=== PATIENT | female | born 1940 | race American Indian/Alaskan Native ===

== ENCOUNTER 2018-03-08 23:13 | Emergency (ER) | payer MEDICARE ==
[2018-03-09 00:48] LABS: Basophils # (Auto) 0.1 K/mm3 (0.0-0.1); Basophils % (Auto) 1.2 % (0.0-1.8); Eosinophils # (Auto) 0.4 K/mm3 (0.0-0.4); Eosinophils % (Auto) 5.9 % (0.0-4.3); Hematocrit 32.5 % (30.3-42.9); Hemoglobin 10.2 gm/dl (10.1-14.3); Lymphocytes # (Auto) 1.7 K/mm3 (1.2-5.4); Lymphocytes % (Auto) 28.9 % (13.4-35.0); Mean Corpuscular HGB Conc 31 % (30-34); Mean Corpuscular Hemoglobin 27 pg (28-32); Mean Corpuscular Volume 87 fl (79-97); Monocytes # (Auto) 0.6 K/mm3 (0.0-0.8); Monocytes % (Auto) 10.4 % (0.0-7.3); Platelet Count 218 K/mm3 (140-440); Red Blood Count 3.74 M/mm3 (3.65-5.03); Red Cell Distribution Width 14.5 % (13.2-15.2)
[2018-03-09 01:06] LABS: Albumin 4.3 g/dL (3.9-5); Calcium 9.1 mg/dL (8.4-10.2)
--- NOTE | 2018-03-09 02:41 | Emergency Department Report ---
HPI - General Chief Complaint: Fall Time Seen by Provider: 03/09/18 02:11 - HPI HPI: 77-year-old -Portuguese female presents to the emergency department from home after she has had 3 different falls and has some dizziness. Patient has a history of narcolepsy and recently was started on a new medication called Armadafinil that she started taking 2 days ago. However last night patient had 3 different instances in which she felt balanced and fell including one time in the bathroom. She fell backwards, hit her head, but denies any loss of consciousness. She also has some pain to the right hand and the right hip from this fall. The patient's speech sounds slightly slurred and when I ask her family, who is bedside, if this is her usual speech they say that this is new since last night as well. The patient used to be on Dexedrine for the narcolepsy. She denies any fever, numbness or paresthesias, chest pain or shortness of breath. She has not taken anything for her symptoms prior presentation. 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 denies: chills, fever Eyes: denies: eye pain, eye discharge, vision change ENT: denies: ear pain, throat pain Respiratory: denies: cough, shortness of breath, wheezing Cardiovascular: denies: chest pain, palpitations Gastrointestinal: denies: abdominal pain, nausea, diarrhea Genitourinary: denies: urgency, dysuria, discharge Musculoskeletal: arthralgia. denies: back pain, joint swelling Skin: denies: rash, lesions Neurological: headache, weakness, other (dizziness) Physical Exam - Physical Exam Vital Signs: Vital Signs 03/08/18 23:54 Temperature 98.3 F Pulse Rate 68 Blood Pressure 128/51 O2 Sat by Pulse 94 Oximetry Physical Exam: GENERAL: The patient is well-developed well-nourished. HENT: Normocephalic. Atraumatic. Patient has moist mucous membranes. EYES: Extraocular motions are intact. Pupils equal reactive to light bilaterally. No nystagmus. NECK: Supple. Trachea is midline. CHEST/LUNGS: Clear to auscultation. There is no respiratory distress noted. HEART/CARDIOVASCULAR: Regular. There is no tachycardia. There is no murmur. ABDOMEN: Abdomen is soft, nontender. Patient has normal bowel sounds. There is no abdominal distention. SKIN: Skin is warm and dry. NEURO: The patient is awake, alert, and oriented. The patient is cooperative. The patient has no motor or sensory deficits. Patient appears to have some slightly slurred speech. Normal gait. No pronator drift. No dysmetria. MUSCULOSKELETAL: There is no tenderness or deformity. There is no limitation range of motion. There is no evidence of acute injury. Muscle strength 5 out of 5 upper and lower extremity as bilaterally. ED Course Vital Signs 03/08/18 23:54 Temperature 98.3 F Pulse Rate 68 Blood Pressure 128/51 O2 Sat by Pulse 94 Oximetry ED Medical Decision Making - Lab Data Result diagrams: 03/09/18 00:09 03/09/18 00:09 - EKG Data -: EKG Interpreted by [facility] EKG shows normal: sinus rhythm, axis, intervals, QRS complexes (right bundle branch block), ST-T waves Rate: normal - EKG Data When compared to previous EKG there are: previous EKG unavailable Interpretation: other (sinus rhythm, right bundle branch block) - Radiology Data Radiology results: report reviewed CT of the head does not show any acute intracranial process including no ischemia, shift, mass, bleeding or skull fracture. CT of the cervical spine does not show any fracture, subluxation or any acute process. - Medical Decision Making The patient is here after she had 3 falls since last night including one in the bathroom which she had her head. When I am first seeing her for history and physical, she is awake and alert and does not have any obvious deficits other than she has sometimes hard to understand with her speech. She says makes sense that she does appear oriented and cognizant. There is no motor or sensory deficits and she has full muscle strength to upper and lower extremities bilaterally. CT of the head did not show any bleed, shift, mass or any acute process. CT of the cervical spine does not show any fracture, subluxation or any acute processes. Her labs have been unremarkable and do not show any etiology of her symptoms. The patient has a history of narcolepsy with some cataplexy and she feels very strongly that her dizziness, weakness, falls were secondary to this new medication that she was placed on. However given the examination and her symptoms I felt that the patient should be admitted for MRI and possibly neurology consultation for further workup of possible atypical or posterior CVA. At first the patient was in agreement for admission and further evaluation but after her family left she decided that she feels symptoms are secondary to the previous medication and she does not want to stay. I discussed with her my reasoning for admission and the further tests that would be done but she still does not want to stay. We had a discussion about the risks of leaving including worsening of her symptoms, further recurrent falls, stroke, disability, coma and even . Despite all this, the patient still will not stay. I asked her further questions and she has normal mental capacity and therefore was allowed to sign out AGAINST MEDICAL ADVICE. She was encouraged to return to the emergency department if she changes her mind or with any acute distress. Critical care attestation.: If time is entered above; I have spent that time in minutes in the direct care of this critically ill patient, excluding procedure time. 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
[2018-03-09 03:36] VITALS: BP 122/50
[2018-03-09 05:12] LABS: Bilirubin,Urine NEG (Negative); Blood,Urine NEG (Negative); Color,Urine Yellow (Yellow); Mucus,Urine FEW /HPF; Protein,Urine <15 mg/dL mg/dL (Negative); Urobilinogen,Urine < 2.0 mg/dL (<2.0); WBC,Urine < 1.0 /HPF (0.0-6.0)
[2018-03-09] MEDS ORDERED: TYLENOL PO PRN (05:15)
[2018-03-09] MEDS ORDERED: ZOFRAN IV PRN (05:15)
[2018-03-09 05:22] LABS: Cannabinoid Screen,Urine PRESUMPTIVE NEGATIVE; Cocaine Screen,Urine PRESUMPTIVE NEGATIVE; Opiate Screen,Urine PRESUMPTIVE NEGATIVE
--- NOTE | 2018-03-09 05:23 | Event Note ---
Date: 03/09/18 Called by the emergency room physician to admit this patient, however I was informed that the patient signed out AGAINST MEDICAL ADVICE
[2018-03-09 05:42] LABS: Amphetamine Screen,Urine PRESUMPTIVE POSITIVE; Benzodiazepines Screen,Urine PRESUMPTIVE POSITIVE; Methadone Screen,Urine PRESUMPTIVE POSITIVE
--- NOTE | 2018-03-12 14:22 | Cat Scan Report ---
FINAL REPORT EXAM: CT HEAD/BRAIN WO CON HISTORY: Fall TECHNIQUE: CT evaluation was performed of the head without the use of intravenous contrast administration. PRIORS: None. FINDINGS: Mild diffuse periventricular white matter hypodensity compatible with chronic small vessel ischemic change. Mild diffuse brain parenchymal atrophy, with mild prominence of the CSF-containing spaces is likely secondary to atrophy. No hemorrhage, mass effect,or herniation. Atherosclerotic calcifications in the distal internal carotid and vertebral arteries. No calvarial lesions. IMPRESSION: No CT evidence of acute intracranial process. CT findings compatible with chronic small vessel ischemic disease.
--- NOTE | 2018-03-12 14:23 | Cat Scan Report ---
FINAL REPORT EXAM: CT CERVICAL SPINE WO CON HISTORY: Fall TECHNIQUE: CT evaluation was performed of the cervical spine without the use of intravenous contrast administration. Coronal and sagittal imaging also provided for interpretation. PRIORS: None. FINDINGS: CT evaluation of the cervical spine reveals no evidence of acute fracture or subluxation. Cervical vertebral body heights are preserved. There is subtle retrolisthesis of C4 relative to C5. Multilevel endplate, uncovertebral and articular facet degenerative changes are present, most significant at C4-C5, C5-C6 and C6-C7. The prevertebral soft tissues are unremarkable. Emphysematous changes of the lung apices. IMPRESSION: No CT evidence of acute fracture of the cervical spine. Multilevel cervical degenerative changes most prominent from C4-C5 through C6-C7.
== END 2018-03-09 05:33 | disposition left against medical advice (07) ==
LOC: ED 23:13
DX: G47.421 Narcolepsy in conditions classified elsewhere with cataplexy (principal); N28.9 Disorder of kidney and ureter, unspecified; R53.1 Weakness; F17.200 Nicotine dependence, unspecified, uncomplicated
CPT/HCPCS: 36415; 70450; 72125; 80053; 80307; 81001; 82140; 84443; 84484; 85025; 93005; 93010; 99285; G0480; 80320